=== PATIENT | female | born 1940 | race Caucasian/White ===

== ENCOUNTER 2021-04-23 17:16 | Inpatient (IN) ==
[2021-04-23] MEDS ORDERED: SODIUM CHLORIDE 0.9% 1,000 ML IV STA (18:45)
[2021-04-23] MEDS ORDERED: NALOXONE 0.4 MG/ML VIAL IV STA (18:45)
[2021-04-23 19:37] LABS: Immature Granulocytes % 3.3 %; Immature Granulocytes Absolute 0.44 #; Lymphocytes # 0.8 10*3/uL (1.4-4.0); Lymphocytes % 6.1 % (21.3-54.2); Mean Corpuscular HGB Conc 28.6 GM/DL (32-36); Mean Corpuscular Volume 96.3 FL (87-102); Mean Platelet Volume 10.6 FL (9.6-12.0); Neutrophils % 84.6 % (38.7-73.9); Platelet Count 99 T/CUMM (130-400); Red Blood Count 2.18 MC/CUMM (3.8-5.5); White Blood Count 13.2 T/CUMM (4-12)
[2021-04-23 20:26] LABS: Band Neutrophils 4 % (0-10); Lymphocytes 4 % (20-55); Segmented Neutrophils 91 % (50-85); Total Cells Counted 100
[2021-04-23 20:27] LABS: Platelet Estimate Decreased
[2021-04-23 20:29] LABS: Microcytosis 1+
[2021-04-23] MEDS ORDERED: NOREPINEPHRINE 16 MG in SODIUM CHLORIDE 0.9% 234 ML IV PRN (20:33)
[2021-04-23 20:36] LABS: Alkaline Phosphatase 12 U/L (45-117); Aspartate Amino Transferase 6 U/L (0-37); Calcium 9.4 MG/DL (8.5-10.1); Sodium 141 MMOL/L (136-145)
[2021-04-23 20:37] LABS: Albumin 3.1 G/DL (3.4-5.0); Blood Urea Nitrogen 43 MG/DL (7-18); Carbon Dioxide 14 MMOL/L (21-32)
[2021-04-23 20:40] LABS: Alanine Aminotransferase 89 U/L (13-56); Estimated Glom Filtration Rate 18 ML/MIN
[2021-04-23 20:46] LABS: Osmolality,Calculated 334.3 MOS/KG (273-304); Total Protein 6.8 G/DL (6.4-8.2)
[2021-04-23] MEDS ORDERED: NOREPINEPHRINE 4 MG/4 ML VIAL IV ONE (20:46)
[2021-04-23 20:48] LABS: Glucose 869 MG/DL (74-106)
[2021-04-23] MEDS ORDERED: NOREPINEPHRINE 4 MG in SODIUM CHLORIDE 0.9% 246 ML IV PRN (21:00)
[2021-04-23] MEDS ORDERED: INSULIN REGULAR 100 UNIT/ML IV STA (21:03)
[2021-04-23 21:16] LABS: ABG Base Excess 4.4 MMOL/L (-2.5-2.5); ABG HCO3 28.3 MMOL/L (20-26); ABG Oxygen Saturation 95.6 % (95-100); ABG PH 7.264 (7.35-7.45); ABG PO2 84.4 MM HG (80-95)
[2021-04-23 21:19] LABS: ABG PCO2 74.8 MM HG (35-48)
[2021-04-23] MEDS ORDERED: ROCURONIUM 100 MG/10 ML VIAL IV ONE (21:27)
[2021-04-23] MEDS ORDERED: ETOMIDATE 20 MG/10 ML VIAL IV ONE ×2 (21:27→21:56)
[2021-04-23] MEDS ORDERED: INSULIN REGULAR DRIP 100 ML IV PRN (21:39)
[2021-04-23] MEDS ORDERED: PIPERACILLIN/TAZOBACTAM 3,375 MG in SODIUM CHLORIDE 0.9% 100 ML IV STA (21:49)
[2021-04-23] MEDS ORDERED: VECURONIUM 10 MG VIAL IV ONE (21:56)
[2021-04-23 22:15] LABS: ABG Base Excess 5.2 MMOL/L (-2.5-2.5); ABG HCO3 29.1 MMOL/L (20-26); ABG PCO2 39.8 MM HG (35-48); ABG PH 7.472 (7.35-7.45); ABG TCO2 26.1 MMOL/L (23-27)
[2021-04-23] MEDS ORDERED: DEXTROSE 50% 25 GM/50 ML SYRINGE IV ONE (22:29)
[2021-04-23 22:49] LABS: Basophils % 0.1 % (0.0-0.8); Hematocrit 32.4 VOL% (35.7-47.0); Hemoglobin 9.7 GM/DL (12.0-16.0); Immature Granulocytes Absolute 0.45 #; Lymphocytes % 4.6 % (21.3-54.2); Mean Corpuscular HGB Conc 29.9 GM/DL (32-36); Mean Platelet Volume 11.1 FL (9.6-12.0); Monocytes % 4.9 % (1.7-12.7); Neutrophils % 88.4 % (38.7-73.9); Platelet Count 165 T/CUMM (130-400); Red Blood Count 3.52 MC/CUMM (3.8-5.5); Red Cell Distribution Width 15.1 % (9.3-17.3); White Blood Count 22.3 T/CUMM (4-12)
[2021-04-23] MEDS ORDERED: DEXTROSE 50% 25 GM/50 ML SYRINGE IV STA (23:01)
[2021-04-23] MEDS ORDERED: ALBUTEROL 2.5 MG/3 ML NEB RESP TX PRN (23:03)
[2021-04-23] MEDS ORDERED: NOREPINEPHRINE 8 MG in SODIUM CHLORIDE 0.9% 242 ML IV PRN (23:04)
[2021-04-23 23:10] LABS: Albumin 1.9 G/DL (3.4-5.0); Bilirubin,Total 0.5 MG/DL (0.20-1.00); Calcium 7.4 MG/DL (8.5-10.1); Osmolality,Calculated 303.8 MOS/KG (273-304); Potassium 4.1 MMOL/L (3.5-5.1); Total Protein 5.7 G/DL (6.4-8.2)
[2021-04-23] MEDS ORDERED: methylPREDNISolone SOD SUC 125 MG/2 ML VIAL IV STA (23:11)
[2021-04-23 23:19] LABS: Lymphocytes 3 % (20-55); Segmented Neutrophils 92 % (50-85); Total Cells Counted 100
[2021-04-23 23:20] LABS: Platelet Estimate Normal
[2021-04-23 23:22] LABS: Hypochromia Slight; Microcytosis Slight
[2021-04-23 23:23] LABS: Stomatocytes Few
[2021-04-23] MEDS ORDERED: MIDAZOLAM 100 MG in SODIUM CHLORIDE 0.9% 80 ML IV SCH (23:30)
[2021-04-24] MEDS: LACTATED RINGERS 1,000 ML IV SCH ×2 (00:50→08:12)
[2021-04-24] MEDS ORDERED: VANCOMYCIN INJ 1,000 MG in SODIUM CHLORIDE 0.9% 250 ML IV ONE (01:00)
[2021-04-24] MEDS ORDERED: VANCOMYCIN INJ 1,000 MG in SODIUM CHLORIDE 0.9% 250 ML IV PRN (01:37)
[2021-04-24 01:59] LABS: Bacteria,Urine Occasional /HPF (Few); Bilirubin,Urine Negative (Negative); Blood, Urine Negative (Negative); Glucose,Urine (UA) 50 mg/dL (Negative); Hyaline Casts,Urine 36 /LPF (0-3); Ketones,Urine Negative (Negative); Mucus,Urine Occasional /LPF (Occasional); Nitrite,Urine Negative (Negative); Protein,Urine 30 MG/DL; Squamous Epithelial Cell,Urine Occasional /HPF (0-10); Urine Appearance CLOUDY (Clear); Urine Color Amber (Yellow); Urine Specific Gravity 1.018 (1.001-1.035)
[2021-04-24 02:04] LABS: Barbiturates Screen,Urine Negative (Negative); Benzodiazepines Screen,Urine Positive (Negative); Cannabinoid Screen,Urine Negative (Negative); Opiate Screen,Urine Negative (Negative); Phencyclidine Screen,Urine Negative (Negative)
[2021-04-24] MEDS ORDERED: METOPROLOL TARTRATE 5 MG/5 ML VIAL IV STA (02:37)
[2021-04-24 03:54] LABS: ABG Base Excess 4.3 MMOL/L (-2.5-2.5); ABG HCO3 27.8 MMOL/L (20-26); ABG Oxygen Saturation 73.1 % (95-100); ABG PCO2 43.3 MM HG (35-48); ABG PH 7.434 (7.35-7.45); ABG TCO2 26.2 MMOL/L (23-27)
[2021-04-24 03:54] LABS: Basophils % 0.2 % (0.0-0.8); Hematocrit 34.5 VOL% (35.7-47.0); Hemoglobin 10.7 GM/DL (12.0-16.0); Immature Granulocytes % 2.1 %; Immature Granulocytes Absolute 0.46 #; Lymphocytes # 0.5 10*3/uL (1.4-4.0); Lymphocytes % 2.5 % (21.3-54.2); Mean Corpuscular Volume 90.3 FL (87-102); Neutrophils % 92.2 % (38.7-73.9); Platelet Count 184 T/CUMM (130-400); Red Blood Count 3.82 MC/CUMM (3.8-5.5); Red Cell Distribution Width 14.9 % (9.3-17.3); White Blood Count 21.4 T/CUMM (4-12)
[2021-04-24 03:59] LABS: ABG PO2 35.7 MM HG (80-95)
[2021-04-24 04:15] LABS: Band Neutrophils 11 % (0-10); Hypochromia 1+; Lymphocytes 3 % (20-55); Microcytosis Slight; Ovalocytes Slight; Segmented Neutrophils 84 % (50-85); Total Cells Counted 100
[2021-04-24 04:16] LABS: Platelet Estimate Adequate
[2021-04-24 04:41] LABS: Albumin 2.1 G/DL (3.4-5.0); Bilirubin,Total 0.7 MG/DL (0.20-1.00); Calcium 7.7 MG/DL (8.5-10.1); Osmolality,Calculated 293.5 MOS/KG (273-304); Potassium 4.4 MMOL/L (3.5-5.1); Total Protein 6.3 G/DL (6.4-8.2)
[2021-04-24 05:13] LABS: ABG HCO3 28.1 MMOL/L (20-26); ABG PCO2 33.6 MM HG (35-48); ABG PH 7.511 (7.35-7.45)
[2021-04-24] MEDS: methylPREDNISolone SOD SUC 40 MG/1 ML VIAL IV SCH ×2 (08:39→18:54)
[2021-04-24] MEDS: PIPERACILLIN/TAZOBACTAM 3,375 MG in SODIUM CHLORIDE 0.9% 100 ML IV SCH (08:40)
[2021-04-24] MEDS: PANTOPRAZOLE 40 MG VIAL IV SCH (08:40)
[2021-04-24] MEDS ORDERED: MIDAZOLAM 100 MG in SODIUM CHLORIDE 0.9% 80 ML IV PRN (08:47)
[2021-04-24] MEDS: ENOXAPARIN 30 MG/0.3 ML SYRINGE SUBCUT SCH (14:27)
[2021-04-24] MEDS: ACETAMINOPHEN 325 MG TABLET PO PRN (21:12)
[2021-04-24] MEDS: ALPRAZolam 0.5 MG TABLET PO PRN (21:13)
[2021-04-24] MEDS: cefTRIAXone 1,000 MG in SODIUM CHLORIDE 0.9% 100 ML IV SCH (21:13)
[2021-04-25] MEDS: methylPREDNISolone SOD SUC 40 MG/1 ML VIAL IV SCH ×3 (03:07→17:11)
[2021-04-25] MEDS: PIPERACILLIN/TAZOBACTAM 3,375 MG in SODIUM CHLORIDE 0.9% 100 ML IV SCH (03:08)
[2021-04-25 03:42] LABS: ABG Oxygen Saturation 99.1 % (95-100); ABG PCO2 55.8 MM HG (35-48); ABG PH 7.364 (7.35-7.45); ABG TCO2 28.7 MMOL/L (23-27); Allen Test Positive
[2021-04-25 05:00] LABS: Basophils % 0.1 % (0.0-0.8); Hematocrit 34.2 VOL% (35.7-47.0); Hemoglobin 10.3 GM/DL (12.0-16.0); Immature Granulocytes Absolute 0.18 #; Lymphocytes # 0.5 10*3/uL (1.4-4.0); Lymphocytes % 3.1 % (21.3-54.2); Mean Corpuscular HGB Conc 30.1 GM/DL (32-36); Mean Corpuscular Volume 90.5 FL (87-102); Mean Platelet Volume 11.1 FL (9.6-12.0); Monocytes % 6.2 % (1.7-12.7); Neutrophils % 89.6 % (38.7-73.9); Platelet Count 208 T/CUMM (130-400); Red Blood Count 3.78 MC/CUMM (3.8-5.5); Red Cell Distribution Width 15.1 % (9.3-17.3); White Blood Count 17.3 T/CUMM (4-12)
[2021-04-25 05:24] LABS: Alanine Aminotransferase 51 U/L (13-56); Alkaline Phosphatase 78 U/L (45-117); Aspartate Amino Transferase 17 U/L (0-37); Bilirubin,Total < 0.39 MG/DL (0.20-1.00); Blood Urea Nitrogen 33 MG/DL (7-18); Calcium 8.4 MG/DL (8.5-10.1); Carbon Dioxide 32 MMOL/L (21-32); Estimated Glom Filtration Rate 68 ML/MIN; Glucose 151 MG/DL (74-106); Osmolality,Calculated 292.1 MOS/KG (273-304); Potassium 4.1 MMOL/L (3.5-5.1); Sodium 142 MMOL/L (136-145); Total Protein 6.7 G/DL (6.4-8.2)
[2021-04-25 07:09] LABS: Lymphocytes 2 % (20-55); Platelet Estimate Normal; Segmented Neutrophils 95 % (50-85); Total Cells Counted 100
[2021-04-25 07:10] LABS: Hypochromia 2+; Microcytosis Slight; Polychromasia Slight
[2021-04-25] MEDS: ENOXAPARIN 30 MG/0.3 ML SYRINGE SUBCUT SCH (09:55)
[2021-04-25] MEDS: PANTOPRAZOLE 40 MG VIAL IV SCH (09:55)
[2021-04-25] MEDS: ALPRAZolam 0.5 MG TABLET PO PRN ×2 (12:17→20:57)
[2021-04-25] MEDS: ACETAMINOPHEN 325 MG TABLET PO PRN ×2 (12:17→20:59)
[2021-04-25] MEDS: LINEZOLID INJ 600 MG/300 ML PREMIX IV SCH (19:07)
[2021-04-25] MEDS: cefTRIAXone 1,000 MG in SODIUM CHLORIDE 0.9% 100 ML IV SCH (20:59)
[2021-04-25] MEDS ORDERED: ESCITALOPRAM 10 MG TABLET PO SCH (21:00)
[2021-04-26] MEDS: LINEZOLID INJ 600 MG/300 ML PREMIX IV SCH ×2 (05:47→17:41)
[2021-04-26] MEDS: methylPREDNISolone SOD SUC 40 MG/1 ML VIAL IV SCH ×2 (05:47→17:41)
[2021-04-26 06:20] LABS: Basophils % 0.2 % (0.0-0.8); Hematocrit 33.2 VOL% (35.7-47.0); Immature Granulocytes Absolute 0.12 #; Lymphocytes # 0.5 10*3/uL (1.4-4.0); Lymphocytes % 4.4 % (21.3-54.2); Mean Corpuscular HGB Conc 30.1 GM/DL (32-36); Mean Corpuscular Volume 90.7 FL (87-102); Mean Platelet Volume 11.3 FL (9.6-12.0); Monocytes % 9.6 % (1.7-12.7); Neutrophils % 84.8 % (38.7-73.9); Platelet Count 218 T/CUMM (130-400); Red Blood Count 3.66 MC/CUMM (3.8-5.5); Red Cell Distribution Width 14.7 % (9.3-17.3); White Blood Count 12.2 T/CUMM (4-12)
[2021-04-26 06:43] LABS: Calcium 8.5 MG/DL (8.5-10.1); Osmolality,Calculated 287.4 MOS/KG (273-304); Potassium 4.4 MMOL/L (3.5-5.1)
[2021-04-26 06:51] LABS: Band Neutrophils 4 % (0-10); Lymphocytes 5 % (20-55); Platelet Estimate Normal; Segmented Neutrophils 83 % (50-85); Total Cells Counted 100
[2021-04-26] MEDS: PANTOPRAZOLE 40 MG VIAL IV SCH (08:18)
[2021-04-26] MEDS: ENOXAPARIN 30 MG/0.3 ML SYRINGE SUBCUT SCH (08:18)
[2021-04-26] MEDS: ACETAMINOPHEN 325 MG TABLET PO PRN ×3 (08:18→23:01)
[2021-04-26] MEDS: ALPRAZolam 0.5 MG TABLET PO PRN (17:44)
[2021-04-26] MEDS: ONDANSETRON 4 MG/2 ML VIAL IV PRN (17:47)
[2021-04-26] MEDS: cefTRIAXone 1,000 MG in SODIUM CHLORIDE 0.9% 100 ML IV SCH (21:15)
[2021-04-27] MEDS: ALPRAZolam 0.5 MG TABLET PO PRN ×3 (00:15→22:33)
[2021-04-27] MEDS: methylPREDNISolone SOD SUC 40 MG/1 ML VIAL IV SCH ×2 (06:34→17:01)
[2021-04-27] MEDS: LINEZOLID INJ 600 MG/300 ML PREMIX IV SCH (06:35)
[2021-04-27] MEDS: ENOXAPARIN 30 MG/0.3 ML SYRINGE SUBCUT SCH (09:44)
[2021-04-27] MEDS: PANTOPRAZOLE 40 MG VIAL IV SCH (09:44)
[2021-04-27] MEDS: VANCOMYCIN INJ 1,000 MG in SODIUM CHLORIDE 0.9% 250 ML IV SCH ×2 (12:01→22:36)
[2021-04-27] MEDS: ACETAMINOPHEN 325 MG TABLET PO PRN ×2 (15:54→22:34)
[2021-04-27] MEDS ORDERED: methylPREDNISolone SOD SUC 40 MG/1 ML VIAL ONE (16:46)
[2021-04-28] MEDS: methylPREDNISolone SOD SUC 40 MG/1 ML VIAL IV SCH ×2 (05:05→17:47)
[2021-04-28 06:21] LABS: Eosinophils # 0.1 10*3/uL (0.0-0.87); Eosinophils % 0.7 % (0.00-10.9); Hematocrit 34.8 VOL% (35.7-47.0); Hemoglobin 10.4 GM/DL (12.0-16.0); Immature Granulocytes Absolute 0.09 #; Lymphocytes # 1.1 10*3/uL (1.4-4.0); Lymphocytes % 11.8 % (21.3-54.2); Mean Corpuscular HGB Conc 29.9 GM/DL (32-36); Mean Corpuscular Volume 90.6 FL (87-102); Mean Platelet Volume 10.9 FL (9.6-12.0); Monocytes % 11.6 % (1.7-12.7); Neutrophils % 74.9 % (38.7-73.9); Platelet Count 282 T/CUMM (130-400); Red Blood Count 3.84 MC/CUMM (3.8-5.5); Red Cell Distribution Width 14.5 % (9.3-17.3); White Blood Count 9.1 T/CUMM (4-12)
[2021-04-28 06:53] LABS: Calcium 8.8 MG/DL (8.5-10.1); Osmolality,Calculated 272.1 MOS/KG (273-304); Potassium 4.7 MMOL/L (3.5-5.1)
[2021-04-28] MEDS: ENOXAPARIN 30 MG/0.3 ML SYRINGE SUBCUT SCH (09:24)
[2021-04-28] MEDS: PANTOPRAZOLE 40 MG VIAL IV SCH (09:24)
[2021-04-28] MEDS: ALPRAZolam 0.5 MG TABLET PO PRN (09:24)
[2021-04-28] MEDS: VANCOMYCIN INJ 1,000 MG in SODIUM CHLORIDE 0.9% 250 ML IV SCH ×2 (09:31→21:11)
[2021-04-28] MEDS: IBUPROFEN 600 MG TABLET PO PRN ×2 (12:00→21:10)
[2021-04-28] MEDS: ALPRAZolam 0.5 MG TABLET PO SCH ×2 (14:34→21:10)
[2021-04-28] MEDS ORDERED: SKIN HEALING OINT (AQUAPHOR) 50 GM TUBE TOP PRN (16:35)
[2021-04-29] MEDS: methylPREDNISolone SOD SUC 40 MG/1 ML VIAL IV SCH ×2 (05:24→17:39)
[2021-04-29 06:35] LABS: Basophils % 0.1 % (0.0-0.8); Eosinophils # 0.1 10*3/uL (0.0-0.87); Eosinophils % 1.1 % (0.00-10.9); Hematocrit 34.7 VOL% (35.7-47.0); Hemoglobin 10.5 GM/DL (12.0-16.0); Immature Granulocytes % 2.3 %; Immature Granulocytes Absolute 0.23 #; Lymphocytes # 1.2 10*3/uL (1.4-4.0); Mean Corpuscular HGB Conc 30.3 GM/DL (32-36); Mean Corpuscular Volume 89.7 FL (87-102); Mean Platelet Volume 10.9 FL (9.6-12.0); Monocytes % 12.2 % (1.7-12.7); Neutrophils % 72.3 % (38.7-73.9); Platelet Count 328 T/CUMM (130-400); Red Blood Count 3.87 MC/CUMM (3.8-5.5); Red Cell Distribution Width 14.6 % (9.3-17.3); White Blood Count 10.2 T/CUMM (4-12)
[2021-04-29 06:49] LABS: Calcium 8.6 MG/DL (8.5-10.1); Potassium 4.6 MMOL/L (3.5-5.1)
[2021-04-29] MEDS: PANTOPRAZOLE 40 MG VIAL IV SCH (08:45)
[2021-04-29] MEDS: ALPRAZolam 0.5 MG TABLET PO SCH ×3 (08:45→20:28)
[2021-04-29] MEDS: ENOXAPARIN 30 MG/0.3 ML SYRINGE SUBCUT SCH (08:45)
[2021-04-29] MEDS: IBUPROFEN 600 MG TABLET PO PRN ×2 (08:46→16:04)
[2021-04-29] MEDS: VANCOMYCIN INJ 1,000 MG in SODIUM CHLORIDE 0.9% 250 ML IV SCH ×2 (08:51→21:32)
[2021-04-29] MEDS: ACETAMINOPHEN 325 MG TABLET PO PRN (20:28)
[2021-04-30] MEDS: methylPREDNISolone SOD SUC 40 MG/1 ML VIAL IV SCH ×2 (05:53→21:26)
[2021-04-30] MEDS: ALPRAZolam 0.5 MG TABLET PO SCH ×3 (09:02→21:26)
[2021-04-30] MEDS: ENOXAPARIN 30 MG/0.3 ML SYRINGE SUBCUT SCH (09:02)
[2021-04-30] MEDS: PANTOPRAZOLE 40 MG VIAL IV SCH (09:02)
[2021-04-30] MEDS: VANCOMYCIN INJ 1,000 MG in SODIUM CHLORIDE 0.9% 250 ML IV SCH ×2 (09:03→21:27)
[2021-04-30 09:43] LABS: Basophils % 0.1 % (0.0-0.8); Eosinophils % 0.3 % (0.00-10.9); Hematocrit 36.8 VOL% (35.7-47.0); Hemoglobin 11.4 GM/DL (12.0-16.0); Immature Granulocytes % 2.6 %; Immature Granulocytes Absolute 0.31 #; Lymphocytes # 0.5 10*3/uL (1.4-4.0); Lymphocytes % 4.4 % (21.3-54.2); Mean Corpuscular Volume 88.7 FL (87-102); Mean Platelet Volume 10.2 FL (9.6-12.0); Monocytes % 4.2 % (1.7-12.7); Neutrophils % 88.4 % (38.7-73.9); Platelet Count 388 T/CUMM (130-400); Red Blood Count 4.15 MC/CUMM (3.8-5.5); Red Cell Distribution Width 14.7 % (9.3-17.3); White Blood Count 11.8 T/CUMM (4-12)
[2021-04-30 10:12] LABS: Anisocytosis 1+; Band Neutrophils 5 % (0-10); Eosinophils 1 % (0-10); Lymphocytes 4 % (20-55); Platelet Estimate Normal; Segmented Neutrophils 85 % (50-85); Total Cells Counted 100
[2021-04-30 10:13] LABS: Macrocytosis Slight; Stomatocytes Few
[2021-04-30 10:14] LABS: Bilirubin,Total 0.9 MG/DL (0.20-1.00); Calcium 8.9 MG/DL (8.5-10.1); Osmolality,Calculated 282.8 MOS/KG (273-304); Potassium 4.8 MMOL/L (3.5-5.1); Total Protein 6.8 G/DL (6.4-8.2)
[2021-05-01 05:27] LABS: Basophils % 0.1 % (0.0-0.8); Eosinophils # 0.2 10*3/uL (0.0-0.87); Eosinophils % 1.2 % (0.00-10.9); Hematocrit 36.2 VOL% (35.7-47.0); Hemoglobin 10.9 GM/DL (12.0-16.0); Immature Granulocytes % 2.6 %; Immature Granulocytes Absolute 0.33 #; Lymphocytes # 1.1 10*3/uL (1.4-4.0); Lymphocytes % 8.9 % (21.3-54.2); Mean Corpuscular HGB Conc 30.1 GM/DL (32-36); Mean Corpuscular Volume 89.4 FL (87-102); Mean Platelet Volume 10.1 FL (9.6-12.0); Monocytes % 9.8 % (1.7-12.7); Neutrophils % 77.4 % (38.7-73.9); Platelet Count 400 T/CUMM (130-400); Red Blood Count 4.05 MC/CUMM (3.8-5.5); Red Cell Distribution Width 14.8 % (9.3-17.3); White Blood Count 12.5 T/CUMM (4-12)
[2021-05-01 05:47] LABS: Bilirubin,Total 0.7 MG/DL (0.20-1.00); Calcium 8.8 MG/DL (8.5-10.1); Osmolality,Calculated 281.4 MOS/KG (273-304); Potassium 4.5 MMOL/L (3.5-5.1); Total Protein 6.3 G/DL (6.4-8.2)
[2021-05-01] MEDS: PANTOPRAZOLE 40 MG TABLET PO SCH (07:05)
[2021-05-01] MEDS: ACETAMINOPHEN 325 MG TABLET PO PRN ×2 (08:19→14:04)
[2021-05-01] MEDS: VANCOMYCIN INJ 1,000 MG in SODIUM CHLORIDE 0.9% 250 ML IV SCH ×2 (08:20→23:04)
[2021-05-01] MEDS: ENOXAPARIN 40 MG/0.4 ML SYRINGE SUBCUT SCH (08:21)
[2021-05-01] MEDS: ALPRAZolam 0.5 MG TABLET PO SCH ×3 (08:21→23:03)
[2021-05-01] MEDS: methylPREDNISolone SOD SUC 40 MG/1 ML VIAL IV SCH ×2 (08:22→23:04)
[2021-05-01] MEDS ORDERED: TUBERCULIN SKIN TEST 0.1 ML SYRINGE INTRADERM ONE (13:00)
[2021-05-01] MEDS: ALBUTEROL/IPRATROPIUM 3 ML NEB RESP TX SCH (20:30)
[2021-05-02] MEDS: ALBUTEROL/IPRATROPIUM 3 ML NEB RESP TX SCH ×6 (01:10→20:12)
[2021-05-02 05:31] LABS: Basophils % 0.2 % (0.0-0.8); Hematocrit 35.1 VOL% (35.7-47.0); Hemoglobin 10.5 GM/DL (12.0-16.0); Immature Granulocytes % 2.3 %; Immature Granulocytes Absolute 0.28 #; Lymphocytes # 0.5 10*3/uL (1.4-4.0); Lymphocytes % 4.4 % (21.3-54.2); Mean Corpuscular HGB Conc 29.9 GM/DL (32-36); Mean Corpuscular Volume 89.8 FL (87-102); Mean Platelet Volume 10.1 FL (9.6-12.0); Neutrophils % 90.1 % (38.7-73.9); Platelet Count 358 T/CUMM (130-400); Red Blood Count 3.91 MC/CUMM (3.8-5.5); Red Cell Distribution Width 14.9 % (9.3-17.3); White Blood Count 12.2 T/CUMM (4-12)
[2021-05-02] MEDS: PANTOPRAZOLE 40 MG TABLET PO SCH (05:58)
[2021-05-02 05:59] LABS: Albumin 1.9 G/DL (3.4-5.0); Bilirubin,Total 1.1 MG/DL (0.20-1.00); Calcium 8.2 MG/DL (8.5-10.1); Osmolality,Calculated 281.5 MOS/KG (273-304); Potassium 4.8 MMOL/L (3.5-5.1)
[2021-05-02 06:50] LABS: Band Neutrophils 1 % (0-10); Lymphocytes 7 % (20-55); Platelet Estimate Normal; Segmented Neutrophils 91 % (50-85); Total Cells Counted 100
[2021-05-02] MEDS: methylPREDNISolone SOD SUC 40 MG/1 ML VIAL IV SCH (08:40)
[2021-05-02] MEDS: ENOXAPARIN 40 MG/0.4 ML SYRINGE SUBCUT SCH (08:40)
[2021-05-02] MEDS: ALPRAZolam 0.5 MG TABLET PO SCH ×3 (08:40→21:06)
[2021-05-02] MEDS: cephALEXin 500 MG CAPSULE PO SCH ×2 (11:49→21:05)
[2021-05-02] MEDS ORDERED: LEVALBUTEROL 1.25 MG/3 ML NEB RESP TX ONE (14:00)
[2021-05-02] MEDS: IBUPROFEN 600 MG TABLET PO PRN (14:27)
[2021-05-02] MEDS ORDERED: VANCOMYCIN INJ 1,000 MG in SODIUM CHLORIDE 0.9% 250 ML IV SCH (18:00)
[2021-05-02 20:28] LABS: Amorphous Crystals,Urine Occasional /HPF (Few); Bacteria,Urine Occasional /HPF (Few); Bilirubin,Urine Negative (Negative); Blood, Urine Negative (Negative); Glucose,Urine (UA) Negative (Negative); Ketones,Urine Negative (Negative); Mucus,Urine Occasional /LPF (Occasional); Nitrite,Urine Negative (Negative); Protein,Urine Negative; Squamous Epithelial Cell,Urine Occasional /HPF (0-10); Urine Appearance Slightly Hazy (Clear); Urine Color Yellow (Yellow); Urine Specific Gravity 1.016 (1.001-1.035); Urine Urobilinogen < 2.0 EU/DL (<2.0)
[2021-05-02] MEDS: ACETAMINOPHEN 325 MG TABLET PO PRN (21:06)
[2021-05-03] MEDS: LEVALBUTEROL 1.25 MG/3 ML NEB RESP TX SCH ×7 (00:14→19:25)
[2021-05-03 05:40] LABS: Basophils % 0.2 % (0.0-0.8); Eosinophils # 0.1 10*3/uL (0.0-0.87); Eosinophils % 0.7 % (0.00-10.9); Hematocrit 34.2 VOL% (35.7-47.0); Hemoglobin 10.6 GM/DL (12.0-16.0); Immature Granulocytes % 3.1 %; Immature Granulocytes Absolute 0.34 #; Lymphocytes # 1.6 10*3/uL (1.4-4.0); Lymphocytes % 14.1 % (21.3-54.2); Mean Corpuscular Volume 88.6 FL (87-102); Mean Platelet Volume 10.3 FL (9.6-12.0); Monocytes % 11.7 % (1.7-12.7); Neutrophils % 70.2 % (38.7-73.9); Platelet Count 360 T/CUMM (130-400); Red Blood Count 3.86 MC/CUMM (3.8-5.5); Red Cell Distribution Width 15.4 % (9.3-17.3)
[2021-05-03] MEDS: PANTOPRAZOLE 40 MG TABLET PO SCH (05:54)
[2021-05-03 06:04] LABS: Alanine Aminotransferase 35 U/L (13-56); Alkaline Phosphatase 57 U/L (45-117); Aspartate Amino Transferase 15 U/L (0-37); Bilirubin,Total < 0.39 MG/DL (0.20-1.00); Blood Urea Nitrogen 30 MG/DL (7-18); Calcium 8.9 MG/DL (8.5-10.1); Carbon Dioxide 37 MMOL/L (21-32); Estimated Glom Filtration Rate 71 ML/MIN; Glucose 113 MG/DL (74-106); Osmolality,Calculated 281.7 MOS/KG (273-304); Potassium 4.3 MMOL/L (3.5-5.1); Sodium 138 MMOL/L (136-145)
[2021-05-03] MEDS: ALBUTEROL/IPRATROPIUM 3 ML NEB RESP TX SCH ×2 (06:43→07:15)
[2021-05-03] MEDS: cephALEXin 500 MG CAPSULE PO SCH ×2 (09:17→20:27)
[2021-05-03] MEDS: ALPRAZolam 0.5 MG TABLET PO SCH ×4 (09:17→20:27)
[2021-05-03] MEDS: predniSONE 20 MG TABLET PO SCH (09:17)
[2021-05-03] MEDS: ENOXAPARIN 40 MG/0.4 ML SYRINGE SUBCUT SCH (09:17)
[2021-05-03] MEDS: ACETAMINOPHEN 325 MG TABLET PO PRN (20:28)
[2021-05-04] MEDS: LEVALBUTEROL 1.25 MG/3 ML NEB RESP TX SCH ×5 (00:08→15:05)
[2021-05-04 05:58] LABS: Basophils % 0.1 % (0.0-0.8); Eosinophils # 0.1 10*3/uL (0.0-0.87); Eosinophils % 0.5 % (0.00-10.9); Hematocrit 33.1 VOL% (35.7-47.0); Hemoglobin 10.3 GM/DL (12.0-16.0); Immature Granulocytes % 1.3 %; Immature Granulocytes Absolute 0.15 #; Lymphocytes # 1.5 10*3/uL (1.4-4.0); Lymphocytes % 13.4 % (21.3-54.2); Mean Corpuscular HGB Conc 31.1 GM/DL (32-36); Mean Corpuscular Volume 88.7 FL (87-102); Mean Platelet Volume 11.1 FL (9.6-12.0); Monocytes % 10.9 % (1.7-12.7); Neutrophils % 73.8 % (38.7-73.9); Platelet Count 326 T/CUMM (130-400); Red Blood Count 3.73 MC/CUMM (3.8-5.5); Red Cell Distribution Width 15.6 % (9.3-17.3); White Blood Count 11.5 T/CUMM (4-12)
[2021-05-04 06:14] LABS: Alanine Aminotransferase 33 U/L (13-56); Alkaline Phosphatase 57 U/L (45-117); Aspartate Amino Transferase 17 U/L (0-37); Bilirubin,Total < 0.39 MG/DL (0.20-1.00); Blood Urea Nitrogen 26 MG/DL (7-18); Calcium 8.7 MG/DL (8.5-10.1); Carbon Dioxide 31 MMOL/L (21-32); Estimated Glom Filtration Rate 75 ML/MIN; Glucose 131 MG/DL (74-106); Osmolality,Calculated 281.7 MOS/KG (273-304); Potassium 4.3 MMOL/L (3.5-5.1); Sodium 138 MMOL/L (136-145)
[2021-05-04] MEDS: PANTOPRAZOLE 40 MG TABLET PO SCH (06:22)
[2021-05-04 07:38] LABS: Platelet Estimate Normal
[2021-05-04] MEDS: cephALEXin 500 MG CAPSULE PO SCH ×2 (08:15→20:18)
[2021-05-04] MEDS: predniSONE 20 MG TABLET PO SCH (08:15)
[2021-05-04] MEDS: ENOXAPARIN 40 MG/0.4 ML SYRINGE SUBCUT SCH (08:15)
[2021-05-04] MEDS: ALPRAZolam 0.5 MG TABLET PO SCH ×3 (08:21→20:19)
[2021-05-04] MEDS ORDERED: ALBUTEROL 1.25 MG/3 ML NEB RESP TX PRN (15:37)
[2021-05-04] MEDS: IBUPROFEN 600 MG TABLET PO PRN (20:18)
[2021-05-05] MEDS: PANTOPRAZOLE 40 MG TABLET PO SCH (05:58)
[2021-05-05 06:19] LABS: Basophils % 0.3 % (0.0-0.8); Eosinophils # 0.1 10*3/uL (0.0-0.87); Eosinophils % 0.8 % (0.00-10.9); Hematocrit 37.2 VOL% (35.7-47.0); Hemoglobin 11.5 GM/DL (12.0-16.0); Immature Granulocytes % 1.4 %; Immature Granulocytes Absolute 0.15 #; Lymphocytes # 1.4 10*3/uL (1.4-4.0); Lymphocytes % 13.1 % (21.3-54.2); Mean Corpuscular HGB Conc 30.9 GM/DL (32-36); Mean Corpuscular Volume 90.3 FL (87-102); Mean Platelet Volume 11.2 FL (9.6-12.0); Monocytes % 11.3 % (1.7-12.7); Neutrophils % 73.1 % (38.7-73.9); Platelet Count 345 T/CUMM (130-400); Red Blood Count 4.12 MC/CUMM (3.8-5.5); Red Cell Distribution Width 15.6 % (9.3-17.3); White Blood Count 10.9 T/CUMM (4-12)
[2021-05-05 06:56] LABS: Bilirubin,Total 0.8 MG/DL (0.20-1.00); Calcium 8.7 MG/DL (8.5-10.1); Potassium 4.8 MMOL/L (3.5-5.1); Total Protein 6.6 G/DL (6.4-8.2)
[2021-05-05] MEDS: ALPRAZolam 0.5 MG TABLET PO SCH ×3 (10:15→21:20)
[2021-05-05] MEDS: predniSONE 20 MG TABLET PO SCH (10:15)
[2021-05-05] MEDS: ENOXAPARIN 40 MG/0.4 ML SYRINGE SUBCUT SCH (10:16)
[2021-05-05] MEDS: cephALEXin 500 MG CAPSULE PO SCH ×2 (10:16→21:19)
[2021-05-05] MEDS: ONDANSETRON 4 MG/2 ML VIAL IV PRN (17:14)
[2021-05-06 05:36] LABS: Basophils % 0.3 % (0.0-0.8); Eosinophils # 0.1 10*3/uL (0.0-0.87); Eosinophils % 0.7 % (0.00-10.9); Hematocrit 36.7 VOL% (35.7-47.0); Hemoglobin 11.4 GM/DL (12.0-16.0); Immature Granulocytes Absolute 0.11 #; Lymphocytes # 1.6 10*3/uL (1.4-4.0); Lymphocytes % 14.1 % (21.3-54.2); Mean Corpuscular HGB Conc 31.1 GM/DL (32-36); Mean Corpuscular Volume 90.2 FL (87-102); Mean Platelet Volume 10.2 FL (9.6-12.0); Monocytes % 11.1 % (1.7-12.7); Neutrophils % 72.8 % (38.7-73.9); Platelet Count 411 T/CUMM (130-400); Red Blood Count 4.07 MC/CUMM (3.8-5.5); Red Cell Distribution Width 15.3 % (9.3-17.3); White Blood Count 11.5 T/CUMM (4-12)
[2021-05-06] MEDS: PANTOPRAZOLE 40 MG TABLET PO SCH (05:51)
[2021-05-06 05:59] LABS: Albumin 2.3 G/DL (3.4-5.0); Bilirubin,Total 0.9 MG/DL (0.20-1.00); Calcium 8.7 MG/DL (8.5-10.1); Osmolality,Calculated 283.4 MOS/KG (273-304); Potassium 4.3 MMOL/L (3.5-5.1); Total Protein 6.6 G/DL (6.4-8.2)
[2021-05-06] MEDS: cephALEXin 500 MG CAPSULE PO SCH (09:29)
[2021-05-06] MEDS: predniSONE 20 MG TABLET PO SCH (09:29)
[2021-05-06] MEDS: ENOXAPARIN 40 MG/0.4 ML SYRINGE SUBCUT SCH (09:29)
[2021-05-06] MEDS ORDERED: busPIRone 10 MG TABLET PO SCH (11:00)
[2021-05-06] MEDS: busPIRone 10 MG TABLET PO SCH ×2 (11:10→15:01)
[2021-05-06] MEDS: ALPRAZolam 0.5 MG TABLET PO SCH ×2 (11:10→15:01)
[2021-05-06 12:54] VITALS: BP 125/64
== END 2021-05-06 15:30 | DRG 871 ==
LOC: EDUNIT# → EDBD → N.ED 17:16 → N.EDINP 23:03 → SUATTDRO 23:03 → N.5E 04-24 19:52
PROVIDERS: ADMIT Family Medicine; ATTEND Internal Medicine